=== PATIENT | female | born 1955 | race Native Hawaiian/Other Pacific Islander ===

== ENCOUNTER 2018-08-07 07:29 | Emergency (ER) | payer BC ==
[~2018-08-07] VITALS: Ht 165.1 cm; Wt 81.6 kg
[2018-08-07 07:43] VITALS: TEMP 97.9
[2018-08-07 08:24] LABS: PLATELET COUNT 243 K/uL (152-353)
[2018-08-07 08:27] LABS: POTASSIUM 3.8 mmol/L (3.6-5.2); SODIUM 137 mmol/L (136-145)
[2018-08-07 08:39] LABS: PARTIAL THROMBOPLASTIN TIME 24.1 SECONDS (24.5-33.6)
[2018-08-07 10:28] VITALS: BP 162/74
== END 2018-08-07 11:20 | disposition short-term general hospital (02) ==
LOC: ED 07:29
PROVIDERS: Student in an Organized Health Care Education/Training Program
DX: R41.82 Altered mental status, unspecified (principal); I10 Essential (primary) hypertension
CPT/HCPCS: 36415; 80053; 83880; 84484; 85027; 85610; 85730; 93005; 96374; 99285; J0360; J2405; J3490

== ENCOUNTER 2018-08-07 11:20 | Outpatient (CLI) | payer BC | END 2018-08-07 12:38 | disposition short-term general hospital (02) | LOC: AMB 11:20 | DX: R41.82 Altered mental status, unspecified (principal) | CPT/HCPCS: A0425; A0427 ==